=== PATIENT | female | born 1960 | race Caucasian/White ===

== ENCOUNTER 2016-11-01 13:29 | Emergency (ER) | payer MEDICARE ==
[2016-08-14 13:14] VITALS: BMI 54.0
[~2016-11-01 13:29] MED LIST: BUPROPION HCL100 MG PO; CARDIZEM30 MG PO; COLACE100 MG PO; COREG6.25 MG PO; COUMADIN2.5 MG PO; COUMADIN3 MG PO; EFFEXOR XR75 MG PO; FERROUS SULFAT325 MG PO; FOLIC ACID1 MG PO; HUMALOG 30100 UNITS/ SC; IPRAT-ALBUT 0.5-3 ML INH; LAC-HYDRIN 5226 ML TOPICAL; LANTUS INSULIN10 ML SC; LASIX80 MG PO; LIPITOR40 MG PO; LISINOPRIL2.5 MG PO; NYSTATIN1 PWD TOPICAL; PERCOCET 10/3251 TA1 PO; PROTONIX40 MG PO; PROVENTIL HFA6.7 GM INH; SANTYL30 GM TP; TRIGLIDE160 MG PO; XANAX2 MG PO
[2016-11-01 14:26] LABS: BASOPHILS 0.2 % (0.0-2.0); HEMOGLOBIN 13.7 g/dL (12-16); IMMATURE GRANULOCYTES 0.7 % (0-5); LYMPHOCYTES 8.1 % (15-50); MCH 27.7 pg (26.0-34.0); MCHC 33.4 g/dL (31.0-37.0); MEAN PLATELET VOLUME 10.1 fL (7.4-10.4); MONOCYTES 10.5 % (2-11); NEUTROPHILS 79.5 % (40-80); RBC 4.94 10x6/uL (4.00-5.40); RDW 16.7 % (11.5-14.5); WBC 13.9 10x3/uL (4.8-10.8)
[2016-11-01 14:27] LABS: PLATELET COUNT 285 10x3/uL (130-400)
[2016-11-01 14:51] LABS: APTT 58.8 SECONDS (22.8-39.4)
[2016-11-01 14:53] LABS: INR 2.68 (0.85-1.17); PROTIME 28.7 SECONDS (11.6-15.0)
[2016-11-01 14:59] LABS: ALBUMIN 2.7 g/dL (3.4-5.0); CALCIUM 9.4 mg/dL (8.5-10.1); CARBON DIOXIDE 26.6 mmol/L (21.0-32.0); CREATININE - SERUM 3.8 mg/dL (0.6-1.3)
[2016-11-01 15:20] LABS: ANION GAP 18.1 mmol/L (8-16); POTASSIUM - SERUM 5.7 mmol/L (3.5-5.1); PROTEIN - SERUM 7.3 g/dL (6.4-8.2)
== END 2016-11-01 18:52 | disposition home or self-care (01) ==
LOC: D.ER 13:29
PROVIDERS: Emergency Medicine
DX: K92.2 Gastrointestinal hemorrhage, unspecified (principal); I50.9 Heart failure, unspecified; J44.9 Chronic obstructive pulmonary disease, unspecified; E11.9 Type 2 diabetes mellitus without complications